=== PATIENT | male | born 2000 | race Caucasian/White ===

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

== ENCOUNTER 2018-01-15 20:28 | Emergency (ER) | payer OTHER ==
--- NOTE | 2018-01-15 20:40 | ER Report ---
History and Physical Time Seen By MD: 20:40 Hx. of Stated Complaint: pt reports since monday congested, coughing turning into vomiting, headaches. HPI/ROS CHIEF COMPLAINT: cough HISTORY OF PRESENT ILLNESS: This is a 17 year old male. He has had a cough that started on Monday. Associated congestion. Now with headaches and some vomiting as well. Cough is productive at times. No sick contacts. Feeling some fevers subjectively. Tired. Normal bowels. No problem with urination. Allergies: Coded Allergies: prednisone (Verified Adverse Reaction, Mild, "MAKES HIM MEAN", 12/12/17) Home Meds Active Scripts Ondansetron (ZOFRAN ODT) 4 Mg Tab.rapdis, 4 MG PO Q6H PRN for NAUSEA/VOMITING, #20 TAB.JESE 0 Refills Prov:JALEN GRIFFIN MD 01/15/18 Guaifenesin/Codeine (GUAIFENESIN-CODEINE SYRUP) 5 Ml Syrp, 5 ML PO Q6H PRN for COUGH, #120 ML 0 Refills Prov:JALEN GRIFFIN MD 01/15/18 Reviewed Nurses Notes: Yes Hx Smoking: No Smoking Status: Never Smoker Exposure to Second Hand Smoke?: No Hx Substance Use Disorder: No Hx Alcohol Use: No Constitutional Vital Sign - Last 24 Hours 01/15/18 01/15/18 01/15/18 01/15/18 20:28 20:35 20:36 20:43 Temp 98.8 Pulse ??? 89 98 Resp 16 B/P (MAP) 122/77 (92) 122/77 Pulse Ox 94 97 O2 Delivery Room Air 01/15/18 01/15/18 01/15/18 01/15/18 20:58 20:59 21:13 21:18 Pulse ??? 88 84 B/P (MAP) 115/73 (87) Pulse Ox 94 93 01/15/18 01/15/18 01/15/18 21:30 21:48 22:00 Pulse 90 B/P (MAP) 98/64 (75) 101/58 (72) Pulse Ox 94 Physical Exam General Appearance: The patient is alert. Ill, but non-toxic in appearance. Eyes: Pupils are equal, round. No pallor, injection or icterus. ENT: Mucous membranes are moist. Normal oral mucosa. Posterior oropharynx with mild erythema. Small amount of thin post-nasal drainage. Normal nasal mucosa. Normal tympanic membranes and canals. Neck: Supple and non tender. Some anterior cervical small lymphadenopathy. Respiratory: Breathing easily and unlabored. Lungs are clear to auscultation. Cardiovascular: Regular rate and rhythm. No murmurs, gallops or rubs. Normal capillary refill. Gastrointestinal: Abdomen is soft and non tender. Nondistended. Normal active bowel sounds. No CVA tenderness. Neurological: Alert and oriented x3. Skin: Warm and dry. Musculoskeletal: Extremities are nontender. DIFFERENTIAL DIAGNOSIS: After history and physical exam, differential diagnosis was considered for what appears to be a viral syndrome. Medical Decision Making Data Points Laboratory Hematology Test 01/15/18 20:53 Influenza Virus Type A (PCR) Negative (NEGATIVE) Influenza Virus Type B (PCR) Negative (NEGATIVE) Chemistry Test 01/15/18 20:53 Influenza Virus Type A (PCR) Negative (NEGATIVE) Influenza Virus Type B (PCR) Negative (NEGATIVE) EKG/Imaging Imaging CHEST PA AND LAT HISTORY: Cough. Feels ill. Smoker COMPARISON: 04/12/2016 and 01/25/2015. TECHNIQUE: PA and lateral views of the chest. FINDINGS: Pulmonary: Lungs are clear. There is no pneumothorax or pleural effusion. Cardiomediastinal: Cardiac and mediastinal silhouettes are within normal limits. Bones/soft tissues: No acute osseous abnormality. The visible abdomen is normal. IMPRESSION: 1. No acute cardiopulmonary process. Report Dictated By: Juliann Washington at 01/15/2018 9:45 PM ED Course/Re-evaluation ED Course Chest x-ray is negative, without signs of pneumonia. Negative influenza. This is a viral upper respiratory infection with viral syndrome. Discussed treatment options. Guaifenesin with Codeine for cough. Off work for a couple of days for rest and increase fluid intake. Decision to Disposition Date: Jan 15, 2018 Decision to Disposition Time: 22:11 Depart Departure Latest Vital Signs Vital Signs Date Time Temp Pulse Resp B/P (MAP) Pulse Ox O2 Delivery O2 Flow Rate FiO2 01/15/18 22:00 101/58 (72) 01/15/18 21:48 90 94 01/15/18 20:36 98.8 16 Room Air Impression: Primary Impression: Viral upper respiratory illness Condition: Improved Disposition: HOME OR SELF-CARE Referrals: LOKESH HEWITT MD (PCP) New Scripts Ondansetron (ZOFRAN ODT) 4 Mg Tab.rapdis 4 MG PO Q6H PRN for NAUSEA/VOMITING, #20 TAB.JESE 0 Refills Prov: JALEN GRIFFIN MD 01/15/18 Guaifenesin/Codeine (GUAIFENESIN-CODEINE SYRUP) 5 Ml Syrp 5 ML PO Q6H PRN for COUGH, #120 ML 0 Refills Prov: JALEN GRIFFIN MD 01/15/18 Patient Instructions: Viral Syndrome (ED) JALEN GRIFFIN MD Jan 15, 2018 20:40
--- NOTE | 2018-01-15 21:50 | RADIOLOGY IMAGING REPORT ---
FACILITY: [facility] PATIENT NAME: Luis Marsh : 2000 MR: [id number] V: [id number] EXAM DATE: ORDERING PHYSICIAN: JALEN GRIFFIN TECHNOLOGIST: Location: [facility] Patient: Luis Marsh : 2000 Visit/Account:[id number] Date of Sevice: 01/15/2018 CHEST PA AND LAT HISTORY: Cough. Feels ill. Smoker COMPARISON: 04/12/2016 and 01/25/2015. TECHNIQUE: PA and lateral views of the chest. FINDINGS: Pulmonary: Lungs are clear. There is no pneumothorax or pleural effusion. Cardiomediastinal: Cardiac and mediastinal silhouettes are within normal limits. Bones/soft tissues: No acute osseous abnormality. The visible abdomen is normal. IMPRESSION: 1. No acute cardiopulmonary process. Report Dictated By: Juliann Washington at 01/15/2018 9:45 PM Report E-Signed By: Juliann Washington at 01/15/2018 9:46 PM WSN:[id number]
[2018-01-15 22:00] VITALS: BP 101/58
[2018-01-15] MEDS ORDERED: guaiFENesin/CODEINE 5 ML UDBTL PO ONE (22:10)
[2018-01-15] MEDS ORDERED: ROBC PO (22:13)
[2018-01-15] MEDS ORDERED: ONDA4TAB PO (22:13)
== END 2018-01-15 22:21 | disposition home or self-care (01) ==
LOC: ER 20:43
DX: J06.9 Acute upper respiratory infection, unspecified (principal)
CPT/HCPCS: 71046; 87502; 99283

== ENCOUNTER 2018-01-29 21:13 | Emergency (ER) | payer OTHER ==
[~2018-01-29 21:13] MED LIST changes: +ONDA4TAB PO; +ROBC PO
--- NOTE | 2018-01-29 21:15 | ER Report ---
History and Physical Time Seen By MD: 21:15 HPI/ROS CHIEF COMPLAINT: Cough for 2 weeks HISTORY OF PRESENT ILLNESS: 17-year-old male with a cough for 2 weeks, occasionally productive of colored sputum. Patient's had some intermittent fevers. Patient has no asthma allergies and denies smoking. Patient denies exposure to ill contacts. REVIEW OF SYSTEMS: Respiratory: No cough, no dyspnea. Cardiovascular: No chest pain, no palpitations. Gastrointestinal: No vomiting, no abdominal pain. Musculoskeletal: No back pain. Allergies: Coded Allergies: prednisone (Verified Adverse Reaction, Mild, "MAKES HIM MEAN", 01/29/18) Home Meds Active Scripts Amoxicillin (AMOXICILLIN) 875 Mg Tablet, 1 TAB PO Q12H for infection, #14 TAB Prov:HEIDI ANN DO 01/29/18 Discontinued Scripts Ondansetron (ZOFRAN ODT) 4 Mg Tab.rapdis, 4 MG PO Q6H PRN for NAUSEA/VOMITING, #20 TAB.JESE 0 Refills Prov:JALEN GRIFFIN MD 01/15/18 Guaifenesin/Codeine (GUAIFENESIN-CODEINE SYRUP) 5 Ml Syrp, 5 ML PO Q6H PRN for COUGH, #120 ML 0 Refills Prov:JALEN GRIFFIN MD 01/15/18 Reviewed Nurses Notes: Yes Old Medical Records Reviewed: Yes Hx Smoking: No Smoking Status: Never Smoker Exposure to Second Hand Smoke?: No Hx Substance Use Disorder: No Hx Alcohol Use: Yes (occ) Constitutional Vital Sign - Last 24 Hours 01/29/18 21:18 Temp 98.8 Pulse 74 Resp 16 B/P (MAP) 123/71 Pulse Ox 95 O2 Delivery Room Air Physical Exam General Appearance: The patient is alert, has no immediate need for airway protection and no current signs of toxicity. Vital signs stable, afebrile, pulse ox normal HEENT: Pupils equal and round no injection. TMs normal, oropharynx with moderate erythema, no exudate or tonsillar hypertrophy Respiratory: Chest is non tender, lungs are clear to auscultation. No wheezing or rails Cardiac: regular rate and rhythm Gastrointestinal: Abdomen is soft and non tender, no masses, bowel sounds normal. Musculoskeletal: Neck: Neck is supple and non tender. Extremities have full range of motion and are non tender. Skin: No rashes or lesions. DIFFERENTIAL DIAGNOSIS: After history and physical exam differential diagnosis was considered for bronchitis, pneumonia, asthma, mycoplasma, sinusitis, viral syndrome Medical Decision Making ED Course/Re-evaluation ED Course Patient was admitted to an examination room. H&P was done. The differential diagnoses was considered. On clinical examination. Patient has a low-grade fever. His pulse ox is normal. Patient with intermittently productive cough with low-grade fevers. Patient be treated for bronchitis with amoxicillin. Patient advised symptomatic management with Robitussin-DM and ibuprofen. Patient advised to follow-up with primary care if unimproved in 3-5 days. Decision to Disposition Date: Jan 29, 2018 Decision to Disposition Time: 21:25 Depart Departure Latest Vital Signs Vital Signs Date Time Temp Pulse Resp B/P (MAP) Pulse Ox O2 Delivery O2 Flow Rate FiO2 01/29/18 21:18 98.8 74 16 123/71 95 Room Air Impression: Primary Impression: Upper respiratory infection Additional Impression: Fever Condition: Improved Disposition: HOME OR SELF-CARE Referrals: LOKESH HEWITT MD (PCP) New Scripts Amoxicillin (AMOXICILLIN) 875 Mg Tablet 1 TAB PO Q12H for infection, #14 TAB Prov: HEIDI ANN DO 01/29/18 Patient Instructions: Upper Respiratory Infection (ED) Additional Instructions: Take Robitussin-DM and ibuprofen as needed for symptom relief Increase fluid intake Follow-up with primary care if unimproved in 3-5 days Problem Qualifiers Primary Impression: Upper respiratory infection URI type: unspecified URI Qualified Codes: J06.9 - Acute upper respiratory infection, unspecified Additional Impression: Fever Fever type: unspecified Qualified Codes: R50.9 - Fever, unspecified HEIDI ANN DO Jan 29, 2018 21:15
[2018-01-29 21:18] VITALS: BP 123/71
[2018-01-29] MEDS ORDERED: AMOX875T60 PO (21:27)
[2018-01-29] MEDS ORDERED: AMOXICILLIN 875 MG TAB PO ONE (21:30)
== END 2018-01-29 21:40 | disposition home or self-care (01) ==
LOC: ER 21:34
DX: J06.9 Acute upper respiratory infection, unspecified (principal)
CPT/HCPCS: 99283

== ENCOUNTER 2018-06-13 19:14 | Emergency (ER) | payer OTHER ==
[~2018-06-13 19:14] MED LIST changes: +AMOX875T60 PO; -HYDR-4309 PO; +HYDR-653 PO
--- NOTE | 2018-06-13 19:36 | ER Report ---
History and Physical Time Seen By MD: 19:36 Hx. of Stated Complaint: Pt. hasn't been feeling well for 3 days. Vomited 4 times in the last 24 hours. Hasn't check his temp at home, temp 97.7 in triage. Also has a productive cough with white and green sputum. Hasn't been around anyone else who is ill. HPI/ROS CHIEF COMPLAINT: Sick 3 days HISTORY OF PRESENT ILLNESS: 18-year-old male patient possessed emergency room with complaint of being sick for the past 3 days. Patient states that he has been having some left upper quadrant abdominal pain, vomiting 4, dizziness. Patient states that the dizziness is worse when he sitting. He states that he also has worsening pain when he is dizzy. He states that he vomited 4 times yesterday, today he has not vomited and has been able to eat and drink. He did go and have dinner prior to coming to the emergency room. Patient denies having any fevers, although his mother said that he felt warm. They do not have a thermometer to check his temperature. Patient has had a cough, states he's been coughing up phlegm for the past few days. He is taking Tylenol ibuprofen for this. The last time that he had any was last night. REVIEW OF SYSTEMS: Respiratory: As noted above Cardiovascular: No chest pain, no palpitations. Gastrointestinal: As noted above Musculoskeletal: No back pain. Allergies: Coded Allergies: prednisone (Verified Adverse Reaction, Mild, "MAKES HIM MEAN", 06/13/18) Home Meds Active Scripts Amoxicillin (AMOXICILLIN) 875 Mg Tablet, 1 TAB PO Q12H for infection, #14 TAB Prov:SETHHEIDI Clayton DO 01/29/18 Past Medical/Surgical History Patient has a past medical history of migraines, asthma, constipation, H. pylori, right hand fracture, left arm fracture, alcohol use, anxiety. Patient has a surgical history of appendectomy. Patient has a family medical history of cancer, diabetes. Reviewed Nurses Notes: Yes Hx Smoking: No Smoking Status: Never Smoker Exposure to Second Hand Smoke?: No Hx Substance Use Disorder: No Hx Alcohol Use: Yes (occ) Constitutional Vital Sign - Last 24 Hours 06/13/18 06/13/18 06/13/18 06/13/18 19:22 19:23 19:30 19:44 Temp 97.7 Pulse 99 85 Resp 16 B/P (MAP) 125/81 125/81 (96) 129/85 (100) Pulse Ox 95 96 O2 Delivery Room Air 06/13/18 06/13/18 06/13/18 06/13/18 20:00 20:29 20:29 20:30 Pulse 88 89 Resp 18 18 B/P (MAP) 123/78 (93) 113/68 (83) 113/68 (83) 113/77 (89) Pulse Ox 93 95 O2 Delivery Room Air Room Air 06/13/18 06/13/18 06/13/18 06/13/18 20:30 20:31 20:32 20:44 Pulse 95 72 Resp 18 B/P (MAP) 113/77 (89) 116/79 (91) 116/79 (91) Pulse Ox 94 95 O2 Delivery Room Air 06/13/18 21:00 B/P (MAP) 110/63 (79) Physical Exam General Appearance: The patient is alert, has no immediate need for airway protection and no current signs of toxicity. ENT: Tympanic membranes are pearly-maria, auditory canals are patent, mixed membranes are moist. Respiratory: Chest is non tender, lungs are clear to auscultation. Cardiac: regular rate and rhythm Gastrointestinal: Abdomen is soft and tender in the left upper quadrant, no masses, bowel sounds normal. Musculoskeletal: Neck: Neck is supple and non tender. Extremities have full range of motion and are non tender. Skin: No rashes or lesions. DIFFERENTIAL DIAGNOSIS: After history and physical exam differential diagnosis was considered for abdominal pain including but not limited to appendicitis, cholecystitis, gastritis and urinary tract infection. Good the differential is viral syndrome. Medical Decision Making Data Points Result Diagram: 06/13/18193406/13/181934 Laboratory Hematology Test 06/13/18 19:35 06/13/18 20:35 Red Blood Count 5.88 M/uL (4.00-5.60) Mean Corpuscular Volume 88.2 fL (80.0-96.0) Mean Corpuscular Hemoglobin 29.8 pg (26.0-33.0) Mean Corpuscular Hemoglobin Concent 33.8 g/dL (32.0-36.0) Red Cell Distribution Width 13.8 % (11.5-14.5) Mean Platelet Volume 7.1 fL (7.2-11.1) Neutrophils (%) (Auto) 62.4 % (39.4-72.5) Lymphocytes (%) (Auto) 27.3 % (17.6-49.6) Monocytes (%) (Auto) 6.7 % (4.1-12.4) Eosinophils (%) (Auto) 2.4 % (0.4-6.7) Basophils (%) (Auto) 1.2 % (0.3-1.4) Nucleated RBC Relative Count (auto) 0.3 /100WBC Neutrophils # (Auto) 2.9 K/uL (2.0-7.4) Lymphocytes # (Auto) 1.3 K/uL (1.3-3.6) Monocytes # (Auto) 0.3 K/uL (0.3-1.0) Eosinophils # (Auto) 0.1 K/uL (0.0-0.5) Basophils # (Auto) 0.1 K/uL (0.0-0.1) Nucleated RBC Absolute Count (auto) 0.02 K/uL Sodium Level 139 mmol/L (137-145) Potassium Level 3.8 mmol/L (3.5-5.0) Chloride Level 110 mmol/L (98-107) Carbon Dioxide Level 25 mmol/L (22-30) Blood Urea Nitrogen 12 mg/dl (9-21) Creatinine 1.00 mg/dl (0.66-1.25) Glomerular Filtration Rate Calc > 60.0 Random Glucose 101 mg/dl (75-110) Calcium Level 9.0 mg/dl (8.4-10.2) Total Bilirubin 1.2 mg/dl (0.2-1.3) Aspartate Amino Transf (AST/SGOT) 27 U/L (0-35) Alanine Aminotransferase (ALT/SGPT) 27 U/L (0-56) Alkaline Phosphatase 78 U/L (0-126) Total Protein 7.0 g/dl (6.3-8.2) Albumin 4.0 g/dl (3.5-5.0) Amylase Level 74 U/L (0-110) Lipase 82 U/L (23-300) Urine Color Yellow Urine Clarity Clear Urine pH 6.0 pH (4.8-9.5) Urine Specific Blossom 1.029 Urine Protein Negative mg/dL (NEGATIVE) Urine Glucose (UA) Negative mg/dL (NEGATIVE) Urine Ketones Negative mg/dL (NEGATIVE) Urine Blood Negative (NEGATIVE) Urine Nitrite Negative (NEGATIVE) Urine Bilirubin Negative (NEGATIVE) Urine Urobilinogen 4.0 mg/dL (0.2-1.9) Urine Leukocyte Esterase Negative (NEGATIVE) Urine RBC None /HPF (0-2/HPF) Urine WBC <1 /HPF (0-5/HPF) Urine Squamous Epithelial Cells None /LPF (</=FEW) Urine Bacteria Negative /HPF (NONE-FEW) Urine Hyaline Casts Few /LPF (NONE-FEW) Urine Mucus Few /HPF (NONE-FEW) Chemistry Test 06/13/18 19:35 06/13/18 20:35 White Blood Count 4.6 k/uL (4.5-11.0) Red Blood Count 5.88 M/uL (4.00-5.60) Hemoglobin 17.5 g/dL (14.0-18.0) Hematocrit 51.8 % (42.0-52.0) Mean Corpuscular Volume 88.2 fL (80.0-96.0) Mean Corpuscular Hemoglobin 29.8 pg (26.0-33.0) Mean Corpuscular Hemoglobin Concent 33.8 g/dL (32.0-36.0) Red Cell Distribution Width 13.8 % (11.5-14.5) Platelet Count 317 K/uL (150-450) Mean Platelet Volume 7.1 fL (7.2-11.1) Neutrophils (%) (Auto) 62.4 % (39.4-72.5) Lymphocytes (%) (Auto) 27.3 % (17.6-49.6) Monocytes (%) (Auto) 6.7 % (4.1-12.4) Eosinophils (%) (Auto) 2.4 % (0.4-6.7) Basophils (%) (Auto) 1.2 % (0.3-1.4) Nucleated RBC Relative Count (auto) 0.3 /100WBC Neutrophils # (Auto) 2.9 K/uL (2.0-7.4) Lymphocytes # (Auto) 1.3 K/uL (1.3-3.6) Monocytes # (Auto) 0.3 K/uL (0.3-1.0) Eosinophils # (Auto) 0.1 K/uL (0.0-0.5) Basophils # (Auto) 0.1 K/uL (0.0-0.1) Nucleated RBC Absolute Count (auto) 0.02 K/uL Glomerular Filtration Rate Calc > 60.0 Calcium Level 9.0 mg/dl (8.4-10.2) Total Bilirubin 1.2 mg/dl (0.2-1.3) Aspartate Amino Transf (AST/SGOT) 27 U/L (0-35) Alanine Aminotransferase (ALT/SGPT) 27 U/L (0-56) Alkaline Phosphatase 78 U/L (0-126) Total Protein 7.0 g/dl (6.3-8.2) Albumin 4.0 g/dl (3.5-5.0) Amylase Level 74 U/L (0-110) Lipase 82 U/L (23-300) Urine Color Yellow Urine Clarity Clear Urine pH 6.0 pH (4.8-9.5) Urine Specific Blossom 1.029 Urine Protein Negative mg/dL (NEGATIVE) Urine Glucose (UA) Negative mg/dL (NEGATIVE) Urine Ketones Negative mg/dL (NEGATIVE) Urine Blood Negative (NEGATIVE) Urine Nitrite Negative (NEGATIVE) Urine Bilirubin Negative (NEGATIVE) Urine Urobilinogen 4.0 mg/dL (0.2-1.9) Urine Leukocyte Esterase Negative (NEGATIVE) Urine RBC None /HPF (0-2/HPF) Urine WBC <1 /HPF (0-5/HPF) Urine Squamous Epithelial Cells None /LPF (</=FEW) Urine Bacteria Negative /HPF (NONE-FEW) Urine Hyaline Casts Few /LPF (NONE-FEW) Urine Mucus Few /HPF (NONE-FEW) Urinalysis Test 06/13/18 20:35 Urine Color Yellow Urine Clarity Clear Urine pH 6.0 pH (4.8-9.5) Urine Specific Blossom 1.029 Urine Protein Negative mg/dL (NEGATIVE) Urine Glucose (UA) Negative mg/dL (NEGATIVE) Urine Ketones Negative mg/dL (NEGATIVE) Urine Blood Negative (NEGATIVE) Urine Nitrite Negative (NEGATIVE) Urine Bilirubin Negative (NEGATIVE) Urine Urobilinogen 4.0 mg/dL (0.2-1.9) Urine Leukocyte Esterase Negative (NEGATIVE) Urine RBC None /HPF (0-2/HPF) Urine WBC <1 /HPF (0-5/HPF) Urine Squamous Epithelial Cells None /LPF (</=FEW) Urine Bacteria Negative /HPF (NONE-FEW) Urine Hyaline Casts Few /LPF (NONE-FEW) Urine Mucus Few /HPF (NONE-FEW) EKG/Imaging Imaging ACUTE ABDOMEN SERIES 3 VIEW HISTORY: Left lower quadrant abdominal pain. Nausea and vomiting. COMPARISON: 08/27/2014. FINDINGS: Lines/tubes: None. Bowel gas pattern: Normal. Soft tissues: Negative. Bony structures: Negative. Chest: Negative. IMPRESSION: Negative acute abdomen series. Report Dictated By: Jayy Owen MD at 06/13/2018 8:29 PM Report E-Signed By: Jayy Owen MD at 06/13/2018 8:31 PM ED Course/Re-evaluation ED Course Patient was admitted to an exam room, history and physical were obtained. Differential diagnoses were considered. On examination lungs are clear, heart is regular, abdomen is soft and tender in the left upper quadrant. An IV was started, CBC, CMP, urinalysis, acute abdominal x-ray were done. The lab results were unremarkable, x-rays were also negative. I discussed findings with patient. Did encourage him to take [id number] cough and cold medication, Tylenol ibuprofen as if her pain. He is return to emergency room if condition worsens. I would like and follow-up with primary care provider in the next week. Patient did request a note for work. We will go ahead and give him a note and discharge him at this time. Patient father verbalized understanding and agreement with plan. Decision to Disposition Date: Jun 13, 2018 Decision to Disposition Time: 21:06 Depart Departure Latest Vital Signs Vital Signs Date Time Temp Pulse Resp B/P (MAP) Pulse Ox O2 Delivery O2 Flow Rate FiO2 06/13/18 21:00 110/63 (79) 06/13/18 20:44 72 95 06/13/18 20:32 18 Room Air 06/13/18 19:22 97.7 Impression: Primary Impression: Acute viral syndrome Condition: Improved Disposition: HOME OR SELF-CARE Patient Instructions: Viral Syndrome (ED) Additional Instructions: Increase fluid intake. Get plenty of rest. Continue with Tylenol or Ibuprofen as needed for pain. Follow up with your primary care provider in the next week. Return to the ER if condition worsens. Take over the counter cough and cold medication. LAYLA PRATHER Jun 13, 2018 19:36
[2018-06-13] MEDS ORDERED: NS(*) 0.9% 1000 ML BAG 1,000 ML IV ONE (19:41)
[2018-06-13] MEDS ORDERED: ONDANSETRON 4 MG/2 ML VIAL IVP ONE (19:45)
[2018-06-13 19:47] LABS: PLATELET COUNT, AUTOMATED 317 K/uL (150-450)
--- NOTE | 2018-06-13 20:34 | RADIOLOGY IMAGING REPORT ---
[place] [facility] [place]: Luis Marsh : 2000 MR: [id number] V: [id number] EXAM DATE: ORDERING PHYSICIAN: LAYLA PRATHER TECHNOLOGIST: Location: [facility] Patient: Luis Marsh : 2000 Visit/Account:[id number] Date of Sevice: 06/13/2018 ACUTE ABDOMEN SERIES 3 VIEW HISTORY: Left lower quadrant abdominal pain. Nausea and vomiting. COMPARISON: 08/27/2014. FINDINGS: Lines/tubes: None. Bowel gas pattern: Normal. Soft tissues: Negative. Bony structures: Negative. Chest: Negative. IMPRESSION: Negative acute abdomen series. Report Dictated By: Jayy Owen MD at 06/13/2018 8:29 PM Report E-Signed By: Jayy Owen MD at 06/13/2018 8:31 PM WSN:[id number]
[2018-06-13 21:00] VITALS: BP 110/63
== END 2018-06-13 21:26 | disposition home or self-care (01) ==
LOC: ER 19:32
DX: B34.9 Viral infection, unspecified (principal)
CPT/HCPCS: 74022; 81001; 82150; 83690; 85025; 99283; J2405; J7030; 82040; 82247; 82310; 82374; 82435; 82565; 82947; 84075; 84132; 84155; 84295; 84450; 84460; 84520; 96361; 96374

== ENCOUNTER 2018-06-19 17:09 | Emergency (ER) | payer OTHER ==
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
[2018-06-19 18:04] VITALS: BP 116/71
--- NOTE | 2018-06-19 18:56 | RADIOLOGY IMAGING REPORT ---
FACILITY: [facility] [place] PATIENT NAME: Luis Marsh : 2000 MR: [id number] V: [id number] EXAM DATE: ORDERING PHYSICIAN: HEIDI NAN TECHNOLOGIST: Location: [facility] Patient: Luis Marsh : 2000 Visit/Account:[id number] Date of Sevice: 06/19/2018 XR WRIST 3 OR MORE VIEWS RT HISTORY: Wrist pain. Decreased range of motion. COMPARISON: 10/18/2016 FINDINGS: No evidence of acute fracture or dislocation. Carpal rows are well aligned. Scaphoid bone i s intact. Questionable mild widening of the scaphoid-lunate interval. IMPRESSION: 1. No acute osseous abnormality. 2. Questionable widening of the scaphoid-lunate interval although similar to prior. Ligament injury not excluded. Report Dictated By: Oscar Hinkle MD at 06/19/2018 6:49 PM Report E-Signed By: Oscar Hinkle MD at 06/19/2018 6:52 PM WSN:[email or web address]
== END 2018-06-19 18:30 | disposition home or self-care (01) ==
LOC: ER 18:12
DX: M25.531 Pain in right wrist (principal)
CPT/HCPCS: 73110; 99283; L3908

== ENCOUNTER 2018-06-27 15:39 | Emergency (ER) | payer OTHER ==
[2018-06-27 15:44] VITALS: BP 123/78
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
[2018-06-27] MEDS ORDERED: SILVER sulfADI 1% CR 20GM TB TP ONE (16:00)
== END 2018-06-27 16:23 | disposition home or self-care (01) ==
LOC: ER 15:52
DX: T22.011A Burn of unspecified degree of right forearm, initial encounter (principal)
CPT/HCPCS: 99283

== ENCOUNTER 2018-07-19 23:36 | Emergency (ER) | payer OTHER ==
--- NOTE | 2018-07-19 23:49 | ER Report ---
History and Physical Time Seen By MD: 23:49 HPI/ROS CHIEF COMPLAINT: Sore throat, headache, vomiting for 24 hours HISTORY OF PRESENT ILLNESS: 18-year-old male presents ambulatory to the ER complaining of vomiting all day long. Patient planes of a sore throat and a headache. He notes no fever or chills. He notes no cough or rhinitis. He de nies ear pain. Patient notes no diarrhea with his vomiting. Patient further denies abdominal pain. REVIEW OF SYSTEMS: Respiratory: No cough, no dyspnea. Cardiovascular: No chest pain, no palpitations. Gastrointestinal: As above Musculoskeletal: No back pain. Allergies: Coded Allergies: prednisone (Verified Adverse Reaction, Mild, "MAKES HIM MEAN", 07/20/18) Home Meds Active Scripts Ondansetron Hcl (ZOFRAN) 4 Mg Tablet, 4 MG PO Q6H PRN for NAUSEA/VOMITING, #10 Prov:HEIDI ANN DO 07/20/18 Amoxicillin 500 Mg Tab (AMOXICILLIN 500 MG TAB) 500 Mg Tablet, 1 TAB PO Q8H for infection, #30 TAB Prov:HEIDI ANN DO 07/20/18 Reviewed Nurses Notes: Yes Old Medical Records Reviewed: Yes Hx Smoking: No Smoking Status: Never Smoker Exposure to Second Hand Smoke?: No Hx Substance Use Disorder: No Hx Alcohol Use: Yes (occ) Constitutional Vital Sign - Last 24 Hours 07/20/18 07/20/18 07/20/18 07/20/18 00:01 00:06 00:30 00:36 Pulse 94 94 87 Resp 16 B/P (MAP) 135/82 125/83 (97) Pulse Ox 96 97 95 O2 Delivery Room Air 07/20/18 07/20/18 07/20/18 07/20/18 00:51 01:00 01:06 01:21 Pulse 92 87 91 B/P (MAP) 116/72 (87) Pulse Ox 96 95 94 07/20/18 07/20/18 01:30 01:35 Pulse 85 B/P (MAP) 112/65 (81) Pulse Ox 95 Intake and Output 07/19/18 07/19/18 07/20/18 14:59 22:59 06:59 Intake Total 1000 ml Balance 1000 ml Physical Exam Vital signs stable, afebrile, pulse ox normal General Appearance: The patient is alert, has no immediate need for airway protection and no current signs of toxicity. Mild distress HEENT: Pupils equal and round no injection. TMs normal, oropharynx shows tonsillar hypertrophy with exudate on the right Respiratory: Chest is non tender, lungs are clear to auscultation. Cardiac: regular rate and rhythm Gastrointestinal: Abdomen is soft and non tender, no masses, bowel sounds norm al. Musculoskeletal: Neck: Neck is supple and non tender.+ Lymphadenopathy Extremities have full range of motion and are non tender. Skin: No rashes or lesions. DIFFERENTIAL DIAGNOSIS: After history and physical exam differential diagnosis was considered for vomiting including but not limited to gastroenteritis, other infectious causes such as pharyngitis, pneumonia, urinary tract infection, also medication side effect, and appendicitis. Medical Decision Making Data Points Result Diagram: 07/20/18 0012 07/20/18 0012 Laboratory Hematology Test 07/20/18 00:00 07/20/18 00:12 Urine Color Yellow Urine Clarity Clear Urine pH 5.0 pH (4.8-9.5) Urine Specific [place] 1.011 Urine Protein Negative mg/dL (NEGATIVE) Urine Glucose (UA) Negative mg/dL (NEGATIVE) Urine Ketones Negative mg/dL (NEGATIVE) Urine Blood Negative (NEGATIVE) Urine Nitrite Negative (NEGATIVE) Urine Bilirubin Negative (NEGATIVE) Urine Urobilinogen Negative mg/dL (0.2-1.9) Urine Leukocyte Esterase Negative (NEGATIVE) Urine RBC <1 /HPF (0-2/HPF) Urine WBC 1 /HPF (0-5/HPF) Urine Squamous Epithelial Cells None /LPF (</=FEW) Urine Bacteria Negative /HPF (NONE-FEW) Urine Mucus None /HPF (NONE-FEW) Red Blood Count 5.94 M/uL (4.00-5.60) Mean Corpuscular Volume 87.3 fL (80.0-96.0) Mean Corpuscular Hemoglobin 30.7 pg (26.0-33.0) Mean Corpuscular Hemoglobin Concent 35.2 g/dL (32.0-36.0) Red Cell Distribution Width 13.5 % (11.5-14.5) Mean Platelet Volume 7.1 fL (7.2-11.1) Neutrophils (%) (Auto) 64.2 % (39.4-72.5) Lymphocytes (%) (Auto) 19.0 % (17.6-49.6) Monocytes (%) (Auto) 13.9 % (4.1-12.4) Eosinophils (%) (Auto) 2.6 % (0.4-6.7) Basophils (%) (Auto) 0.3 % (0.3-1.4) Nucleated RBC Relative Count (auto) 0.0 /100WBC Neutrophils # (Auto) 3.4 K/uL (2.0-7.4) Lymphocytes # (Auto) 1.0 K/uL (1.3-3.6) Monocytes # (Auto) 0.7 K/uL (0.3-1.0) Eosinophils # (Auto) 0.1 K/uL (0.0-0.5) Basophils # (Auto) 0.0 K/uL (0.0-0.1) Nucleated RBC Absolute Count (auto) 0.00 K/uL Sodium Level 140 mmol/L (137-145) Potassium Level 3.6 mmol/L (3.5-5.0) Chloride Level 102 mmol/L (98-107) Carbon Dioxide Level 27 mmol/L (22-30) Blood Urea Nitrogen 11 mg/dl (9-21) Creatinine 1.20 mg/dl (0.66-1.25) Glomerular Filtration Rate Calc > 60.0 Random Glucose 93 mg/dl (75-110) Calcium Level 9.3 mg/dl (8.4-10.2) Total Bilirubin 0.9 mg/dl (0.2-1.3) Aspartate Amino Transf (AST/SGOT) 23 U/L (0-35) Alanine Aminotransferase (ALT/SGPT) 25 U/L (0-56) Alkaline Phosphatase 91 U/L (0-126) Total Protein 8.0 g/dl (6.3-8.2) Albumin 4.8 g/dl (3.5-5.0) Chemistry Test 07/20/18 00:00 07/20/18 00:12 Urine Color Yellow Urine Clarity Clear Urine pH 5.0 pH (4.8-9.5) Urine Specific [place] 1.011 Urine Protein Negative mg/dL (NEGATIVE) Urine Glucose (UA) Negative mg/dL (NEGATIVE) Urine Ketones Negative mg/dL (NEGATIVE) Urine Blood Negative (NEGATIVE) Urine Nitrite Negative (NEGATIVE) Urine Bilirubin Negative (NEGATIVE) Urine Urobilinogen Negative mg/dL (0.2-1.9) Urine Leukocyte Esterase Negative (NEGATIVE) Urine RBC <1 /HPF (0-2/HPF) Urine WBC 1 /HPF (0-5/HPF) Urine Squamous Epithelial Cells None /LPF (</=FEW) Urine Bacteria Negative /HPF (NONE-FEW) Urine Mucus None /HPF (NONE-FEW) White Blood Count 5.3 k/uL (4.5-11.0) Red Blood Count 5.94 M/uL (4.00-5.60) Hemoglobin 18.3 g/dL (14.0-18.0) Hematocrit 51.9 % (42.0-52.0) Mean Corpuscular Volume 87.3 fL (80.0-96.0) Mean Corpuscular Hemoglobin 30.7 pg (26.0-33.0) Mean Corpuscular Hemoglobin Concent 35.2 g/dL (32.0-36.0) Red Cell Distribution Width 13.5 % (11.5-14.5) Platelet Count 290 K/uL (150-450) Mean Platelet Volume 7.1 fL (7.2-11.1) Neutrophils (%) (Auto) 64.2 % (39.4-72.5) Lymphocytes (%) (Auto) 19.0 % (17.6-49.6) Monocytes (%) (Auto) 13.9 % (4.1-12.4) Eosinophils (%) (Auto) 2.6 % (0.4-6.7) Basophils (%) (Auto) 0.3 % (0.3-1.4) Nucleated RBC Relative Count (auto) 0.0 /100WBC Neutrophils # (Auto) 3.4 K/uL (2.0-7.4) Lymphocytes # (Auto) 1.0 K/uL (1.3-3.6) Monocytes # (Auto) 0.7 K/uL (0.3-1.0) Eosinophils # (Auto) 0.1 K/uL (0.0-0.5) Basophils # (Auto) 0.0 K/uL (0.0-0.1) Nucleated RBC Absolute Count (auto) 0.00 K/uL Glomerular Filtration Rate Calc > 60.0 Calcium Level 9.3 mg/dl (8.4-10.2) Total Bilirubin 0.9 mg/dl (0.2-1.3) Aspartate Amino Transf (AST/SGOT) 23 U/L (0-35) Alanine Aminotransferase (ALT/SGPT) 25 U/L (0-56) Alkaline Phosphatase 91 U/L (0-126) Total Protein 8.0 g/dl (6.3-8.2) Albumin 4.8 g/dl (3.5-5.0) Urinalysis Test 07/20/18 00:00 Urine Color Yellow Urine Clarity Clear Urine pH 5.0 pH (4.8-9.5) Urine Specific [place] 1.011 Urine Protein Negative mg/dL (NEGATIVE) Urine Glucose (UA) Negative mg/dL (NEGATIVE) Urine Ketones Negative mg/dL (NEGATIVE) Urine Blood Negative (NEGATIVE) Urine Nitrite Negative (NEGATIVE) Urine Bilirubin Negative (NEGATIVE) Urine Urobilinogen Negative mg/dL (0.2-1.9) Urine Leukocyte Esterase Negative (NEGATIVE) Urine RBC <1 /HPF (0-2/HPF) Urine WBC 1 /HPF (0-5/HPF) Urine Squamous Epithelial Cells None /LPF (</=FEW) Urine Bacteria Negative /HPF (NONE-FEW) Urine Mucus None /HPF (NONE-FEW) ED Course/Re-evaluation Clinical Indication for ER IV: Hydration, IV Access ED Course Patient was admitted to an examination room. H&P was done. The differential diagnosis was considered. Patient with exudative tonsillitis. Likely giving him vomiting. She is diagnostic laboratory studies are unremarkable. Patient reports a vomiting controlled with Zofran. He feels better with IV fluid hydration. He'll be discharged home on amoxicillin 500 mg 3 times a day. He is given prescription for Zofran to control his vomiting. He is advised ibuprofen 6 mg 3 times daily for pain relief. He is advised to follow-up with primary care if unimproved in 3-5 days. Decision to Disposition Date: Jul 20, 2018 Decision to Disposition Time: 01:13 Depart Departure Latest Vital Signs Vital Signs Date Time Temp Pulse Resp B/P (MAP) Pulse Ox O2 Delivery O2 Flow Rate FiO2 07/20/18 01:35 85 95 07/20/18 01:30 112/65 (81) 07/20/18 00:01 16 Room Air Impression: Primary Impression: Exudative tonsillitis Additional Impression: Vomiting Condition: Improved Disposition: HOME OR SELF-CARE New Scripts Ondansetron Hcl (ZOFRAN) 4 Mg Tablet 4 MG PO Q6H PRN for NAUSEA/VOMITING, #10 Prov: HEIDI ANN DO 07/20/18 Amoxicillin 500 Mg Tab (AMOXICILLIN 500 MG TAB) 500 Mg Tablet 1 TAB PO Q8H for infection, #30 TAB Prov: HEIDI ANN DO 07/20/18 Patient Instructions: Tonsillitis (ED) Additional Instructions: Take ibuprofen 200 mg 3 tablets 3 times a day with food Take your amoxicillin until finished Follow up with primary care if unimproved in 3-5 days Problem Qualifiers Additional Impression: Vomiting Vomiting type: unspecified Vomiting Intractability: unspecified Nausea presence: unspecified Qualified Codes: R11.10 - Vomiting, unspecified HEIDI ANN DO Jul 19, 2018 23:49
[2018-07-20] MEDS ORDERED: NS(*) 0.9% 1000 ML BAG 1,000 ML IV ONE (00:15)
[2018-07-20] MEDS ORDERED: ONDANSETRON 4 MG/2 ML VIAL IVP ONE (00:15)
[2018-07-20 00:23] LABS: PLATELET COUNT, AUTOMATED 290 K/uL (150-450)
[2018-07-20] MEDS ORDERED: AMOX500T10 PO (01:15)
[2018-07-20] MEDS ORDERED: ONDA4TAB97 PO (01:15)
[2018-07-20] MEDS ORDERED: ONDANSETRON 4 MG ODT TH SL ONE (01:20)
[2018-07-20] MEDS ORDERED: AMOXICILLIN 500 MG CAP PO ONE (01:20)
[2018-07-20 01:30] VITALS: BP 112/65
== END 2018-07-20 02:18 | disposition home or self-care (01) ==
LOC: ER 23:53
DX: J03.90 Acute tonsillitis, unspecified (principal); R11.10 Vomiting, unspecified
CPT/HCPCS: 81001; 85025; 96374; 99283; J2405; J7030; S0119; 82040; 82247; 82310; 82374; 82435; 82565; 82947; 84075; 84132; 84155; 84295; 84450; 84460; 84520

== ENCOUNTER 2018-09-15 18:04 | Emergency (ER) | payer OTHER ==
[~2018-09-15 18:04] MED LIST changes: +AMOX500T10 PO
--- NOTE | 2018-09-15 18:33 | ER Report ---
History and Physical Time Seen By MD: 18:13 Hx. of Stated Complaint: pt slammed ring finger tip in front door a few hours ago. pain getting worse, nailbed starting to get black HPI/ROS CHIEF COMPLAINT: slammed finger in door HISTORY OF PRESENT ILLNESS: This is a 18 year old male. He slammed his right 4th finger in the front door a few hours ago. Has redness and swelling of distal phalanx. bruising under the nail. Pain with movement and pressure. Normal sensation otherwise. Allergies: Coded Allergies: prednisone (Verified Adverse Reaction, Mild, "MAKES HIM MEAN", 09/15/18) Home Meds Discontinued Scripts Ondansetron Hcl (ZOFRAN) 4 Mg Tablet, 4 MG PO Q6H PRN for NAUSEA/VOMITING, #10 Prov:HEIDI ANN DO 07/20/18 Amoxicillin 500 Mg Tab (AMOXICILLIN 500 MG TAB) 500 Mg Tablet, 1 TAB PO Q8H for infection, #30 TAB Prov:HEIDI ANN DO 07/20/18 Reviewed Nurses Notes: Yes Hx Smoking: No Smoking Status: Never Smoker Exposure to Second Hand Smoke?: No Hx Substance Use Disorder: No Hx Alcohol Use: Yes (occ) Constitutional Vital Sign - Last 24 Hours 09/15/18 09/15/18 09/15/18 09/15/18 18:08 18:30 19:00 19:30 Temp 98.1 Pulse 86 78 77 88 Resp 20 B/P (MAP) 127/75 106/67 (80) 100/68 (79) 98/67 (77) Pulse Ox 96 94 95 96 O2 Delivery Room Air 09/15/18 20:00 Pulse 65 B/P (MAP) 104/62 (76) Pulse Ox 87 Physical Exam General: Alert, no acute distress. Skin: No breakdown noted. Has partial subungual hematoma under the proximal third of the nailbed. Musculoskeletal: Pain and swelling distal phalanx and DIP joint. Neuro: Normal motor and sensation. Cardio: Normal peripheral perfusion. Medical Decision Making EKG/Imaging Imaging INDICATION: Slammed finger in door. DATE: 09/15/2018 8:03 PM. TECHNIQUE: FINGER RIGHT 4TH DIGIT COMPARISON: None FINDINGS: There is likely a subtle fracture of the distal phalanx of the fourth digit on the volar side. This is conspicuous only on the lateral view. IMPRESSION: Suspected subtle fracture of the distal phalanx of the fourth digit. Report Dictated By: Leonela Pichardo MD at 09/15/2018 8:03 PM ED Course/Re-evaluation ED Course Reviewed imaging results with the patient. Discussed using splinting and then follow up with primary care or orthopedic surgery as needed if pain is not improving, although pain can persist for weeks with a fracture like this is slowly improving. Decision to Disposition Date: September 15, 2018 Decision to Disposition Time: 20:35 Depart Departure Latest Vital Signs Vital Signs Date Time Temp Pulse Resp B/P (MAP) Pulse Ox O2 Delivery O2 Flow Rate FiO2 09/15/18 20:00 65 104/62 (76) 87 09/15/18 18:08 98.1 20 Room Air Impression: Primary Impression: Distal phalanx or phalanges, closed fracture Condition: Improved Disposition: HOME OR SELF-CARE New Scripts No Active Prescriptions or Reported Meds Patient Instructions: Finger Fracture (ED) Additional Instructions: Ibuprofen 200mg over the counter tablets, take 4 tablets three times a day with food. Apply ice 20 minutes every 1-2 hours while awake. Use a splint to protect the finger. Begin gentle range of motion exercises. If not improving in the next few weeks, or if worsening symptoms, follow-up with orthopedic surgery for reevaluation Problem Qualifiers Primary Impression: Distal phalanx or phalanges, closed fracture Encounter type: initial encounter Finger: ring finger Fracture alignment: nondisplaced Laterality: right Qualified Codes: S62.664A - Nondisplaced fracture of distal phalanx of right ring finger, initial encounter for closed fracture JALEN GRIFFIN MD September 15, 2018 18:33
[2018-09-15 20:00] VITALS: BP 104/62
--- NOTE | 2018-09-15 20:10 | RADIOLOGY IMAGING REPORT ---
FACILITY[place] [facility] [place]IENT NAME: Luis Marsh : 2000 MR: [id number] V: [id number] EXAM DATE: ORDERING PHYSICIAN: JALEN GRIFFIN TECHNOLOGIST: Location: [facility] - [place] Patient: Luis Marsh : 2000 Visit/Account:[id number] Date of Sevice: 09/15/2018 INDICATION: Slammed finger in door. DATE: 09/15/2018 8:03 PM. TECHNIQUE: FINGER RIGHT 4TH DIGIT COMPARISON: None FINDINGS: There is likely a subtle fracture of the distal phalanx of the fourth digit on the volar si de. This is conspicuous only on the lateral view. IMPRESSION: Suspected subtle fracture of the distal phalanx of the fourth digit. Report Dictated By: Leonela Pichardo MD at 09/15/2018 8:03 PM Report E-Signed By: Leonela Pichardo MD at 09/15/2018 8:06 PM [id number]
== END 2018-09-15 20:40 | disposition home or self-care (01) ==
LOC: ER 18:14
DX: S62.664A Nondisplaced fracture of distal phalanx of right ring finger, initial encounter for closed fracture (principal); W23.0XXA Caught, crushed, jammed, or pinched between moving objects, initial encounter
CPT/HCPCS: 99283

== ENCOUNTER 2018-12-26 22:12 | Emergency (ER) | payer OTHER ==
[~2018-12-26 22:12] MED LIST changes: -OMEP-125 PO; +OMEP-126 PO
[2018-12-26 22:15] VITALS: BP 111/73
--- NOTE | 2018-12-26 22:23 | ER Report ---
History and Physical Time Seen By MD: 22:19 Hx. of Stated Complaint: pt punched a screen glass door HPI/ROS CHIEF COMPLAINT: hand injury HISTORY OF PRESENT ILLNESS: This is a 18 year old male. Punches a screen glass door. Has some cuts and pain in hand. Normal movement and sensation. Unknown last tetanus date. Allergies: Coded Allergies: prednisone (Verified Adverse Reaction, Mild, "MAKES HIM MEAN", 09/15/18) Home Meds No Active Prescriptions or Reported Meds Reviewed Nurses Notes: Yes Hx Smoking: No Smoking Status: Never Smoker Exposure to Second Hand Smoke?: No Hx Substance Use Disorder: No Hx Alcohol Use: Yes (occ) Constitutional Vital Sign - Last 24 Hours 12/26/18 22:15 Temp 98.6 Pulse 66 Resp 16 B/P (MAP) 111/73 Pulse Ox 94 O2 Delivery Room Air Physical Exam General: Alert, no distress. Skin: Abrasions over MCP knuckles of right hand. No deep lacerations noted. Musculoskeletal: Normal active range of motion. Has good resisted strength on flexion and extension. Neuro: Normal sensation and motor. Cardio: Brisk cap refill in hand. Medical Decision Making ED Course/Re-evaluation ED Course Tetanus given. No need for x-rays as no bony pain on palpation. No sutures required. Conservative management for wound care discussed. Decision to Disposition Date: Dec 26, 2018 Decision to Disposition Time: 22:28 Depart Departure Latest Vital Signs Vital Signs Date Time Temp Pulse Resp B/P (MAP) Pulse Ox O2 Delivery O2 Flow Rate FiO2 12/26/18 22:15 98.6 66 16 111/73 94 Room Air Impression: Primary Impression: Abrasion of hand, right Condition: Improved Disposition: HOME OR SELF-CARE New Scripts No Active Prescriptions or Reported Meds Patient Instructions: Abrasion (ED) Additional Instructions: No need for stitches tonight. Wash the wounds with soap and water. Apply over the counter antibiotic ointment and a bandage to keep clean and dry. Problem Qualifiers Primary Impression: Abrasion of hand, right Encounter type: initial encounter Qualified Codes: S60.511A - Abrasion of right hand, initial encounter JALEN GRIFFIN MD Dec 26, 2018 22:23
[2018-12-26] MEDS ORDERED: DIPHTH/TETANUS/ACEL. PERTUSSIS IM ONLY ONE (22:30)
== END 2018-12-26 22:47 | disposition home or self-care (01) ==
LOC: ER 22:43
DX: S60.511A Abrasion of right hand, initial encounter (principal)
CPT/HCPCS: 90715